=== PATIENT | male | born 1980 | race Caucasian/White ===

== ENCOUNTER 2018-10-10 09:04 | Emergency (ER) | payer BC, OTHER ==
[2018-10-10 10:25] VITALS: BP 146/95
--- NOTE | 2018-10-10 10:33 | UC ---
FLU HPI - HPI Summary HPI Summary: 38-year-old male presents with 4 day history of nasal congestion, sore throat, and a nonproductive cough. Associated with feeling hot and cold especially at night and myalgias. Denies fever, cold sweats, chest pain, palpitations, shortness of breath, abdominal pain, nausea, or vomiting. Has had flu shot this year. States his was recently diagnosed with pneumonia and his daughter has also been experiencing URI symptoms for the past few days. - History of Current Complaint Chief Complaint: UCRespiratory Stated Complaint: CONGESTION Time Seen by Provider: 10/10/18 10:17 Hx Obtained From: Patient Onset/Duration: Gradual Onset, Lasting Days - 4 Pain Intensity: 3 Associated Signs & Symptoms: Positive: Myalgia, Cough, Sore Throat, Nasal Congestion. Negative: Headache, Vomiting, Diarrhea - Allergy/Home Medications Allergies/Adverse Reactions: Allergies Allergy/AdvReac Type Severity Reaction Status Date / Time erythromycin base Allergy Unknown hives, GI Verified 10/10/18 10:18 UPSET Home Medications: Home Medications Acetaminophen TAB* [Tylenol TAB*] 650 mg PO Q4H PRN 10/10/18 [History Confirmed 10/10/18] Melatonin [Meladox] 3 mg PO BEDTIME PRN 10/10/18 [History Confirmed 10/10/18] PMH/Surg Hx/FS Hx/Imm Hx Previously Healthy: Yes - Denies significant PMH - Surgical History Surgical History: None - Family History Known Family History: Positive: Non-Contributory - Social History Occupation: Employed Full-time Lives: With Family Alcohol Use: Weekly Substance Use Type: None Smoking Status (MU): Never Smoked Tobacco - Immunization History Most Recent Influenza Vaccination: [id number] Review of Systems All Other Systems Reviewed And Are Negative: Yes Constitutional: Negative: Fever, Chills Skin: Negative: Rash Eyes: Negative: Drainage, Eye Redness ENT: Positive: Sore Throat, Nasal Discharge, Sinus Congestion. Negative: Ear Ache, Sinus Pain/Tenderness Respiratory: Positive: Cough. Negative: Shortness Of Breath Cardiovascular: Negative: Palpitations, Chest Pain Gastrointestinal: Negative: Abdominal Pain, Vomiting, Nausea Is Patient Immunocompromised?: No Physical Exam - Summary Physical Exam Summary: GENERAL APPEARANCE: Well developed, well nourished, alert and cooperative, and appears to be in no acute distress. EYES: Conjunctiva clear without discharge. EARS: External auditory canals and tympanic membranes clear, hearing grossly intact. NOSE: Mild nasal discharge. THROAT: Oral cavity normal. Mild pharyngeal erythema with cobblestoning. Teeth and gingiva in good general condition. NECK: Neck supple, non-tender without lymphadenopathy. CARDIAC: Normal S1 and S2. No S3, S4 or murmurs. Rhythm is regular. There is no peripheral edema, cyanosis or pallor. Extremities are warm and well perfused. Capillary refill is less than 2 seconds. LUNGS: Clear to auscultation and percussion without rales, rhonchi, wheezing or diminished breath sounds. ABDOMEN: Positive bowel sounds. Soft, nondistended, nontender. No guarding or rebound. No masses or hepatosplenomegally. MUSKULOSKELETAL: ROM intact to all extremities. No joint erythema or tenderness. Normal muscular development. Normal gait. Triage Information Reviewed: Yes Vital Signs: Initial Vital Signs Temp 99.7 F 10/10/18 10:20 Pulse 86 10/10/18 10:20 Resp 16 10/10/18 10:20 BP 146/95 10/10/18 10:20 Pulse Ox 96 10/10/18 10:20 Vital Signs Reviewed: Yes Diagnostics - Laboratory Diagnostic Studies Completed/Ordered: POC rapid strep negative Flu Course/Dx - Course Course Of Treatment: 38-year-old male presents with 4 day history of nasal congestion, sore throat, and a nonproductive cough. Associated with feeling hot and cold especially at night and myalgias. Denies fever, cold sweats, chest pain, palpitations, shortness of breath, abdominal pain, nausea, or vomiting. Has had flu shot this year. States his was recently diagnosed with pneumonia and his daughter has also been experiencing URI symptoms for the past few days. Afebrile. Exam reveals mild nasal congenstion, mild pharyngeal erythema with cobblestoning, and a dry nonproductive cough consistent with viral URI. Recommend symptomatic treatment. He is to follow up with his PCP in 7 days if symptoms persist. Warning symptoms reviewed. Verbalizes understanding and agrees with POC. - Differential Dx/Diagnosis Differential Diagnosis/HQI/PQRI: Bronchitis, Influenza, Pneumonia, Upper Respiratory Infection Provider Diagnosis: Viral URI with cough, Elevated blood pressure reading Discharge - Sign-Out/Discharge Documenting (check all that apply): Patient Departure All imaging exams completed and their final reports reviewed: No Studies - Discharge Plan Condition: Stable Disposition: HOME Prescriptions: Benzonatate CAP* [Tessalon 100 MG CAP*] 100 mg PO TID PRN #30 cap PRN Reason: Cough Fluticasone NASAL SPRAY 50MCG* [Flonase NASAL SPRAY 50MCG*] 2 spray BOTH NARES DAILY #1 btl Patient Education Materials: Upper Respiratory Infection (ED) Forms: *Work Release Referrals: Tato Paulino DO [Primary Care Provider] - 7 Days (If symptoms persist.) Additional Instructions: Your history and exam are consistent with viral upper respiratory infection. Viral infections do not respond to antibiotics and typically run their course over 7-10 days. Use a saline rinse kit such as Neti Pot or NeilMed at least twice a day. Start fluticasone nasal spray 2 sprays each nostril once a day. Take an over the counter decongestant such as Sudafed according to directions as needed for nasal congestion. Take acetaminophen (Tylenol) or ibuprofen (Advil, Motrin) according to directions as needed for fever or pain. Take Tessalon Perles 1 cap every 8 hours as needed for cough. Use salt water gargles several times a day if you have a sore throat. You may also use Chloraseptic spray or Cepacol lozenges for some temporary pain relief from your sore throat. Follow-up with your primary care provider in 7 days if symptoms persist. Your blood pressure was elevated in the clinic today. It is recommended that you have this rechecked within 4 weeks by your primary care provider. Seek immediate medical attention if you have a persistent fever greater than 100.5 F despite taking acetaminophen or ibuprofen, you are unable to swallow, has difficulty breathing, or have any worsening of symptoms. - Billing Disposition and Condition Condition: STABLE Disposition: Home - Attestation Statements Provider Attestation: I was available for consult. This patient was seen by the SIMRAN. The patient was not presented to, seen by, or examined by me. -Wen
== END 2018-10-10 11:10 | disposition home or self-care (01) ==
LOC: UCCORT 09:04
DX: Z88.1 Allergy status to other antibiotic agents (principal); J06.9 Acute upper respiratory infection, unspecified; R03.0 Elevated blood-pressure reading, without diagnosis of hypertension
CPT/HCPCS: 87651; 99212; G0463